=== PATIENT | female | born 1995 | race Caucasian/White ===

== ENCOUNTER 2021-05-05 07:27 | Observation (INO) | payer OTHER, SELFPAY ==
[2021-05-05] VITALS (15 sets, daily range): BP systolic 86–137; BP diastolic 47–79; PULSE 65–106; RESP 14–22; TEMP 36.7–37.5; O2SAT 94–99; BMI 33.9
--- NOTE | 2021-05-05 07:42 | ED_ITS ---
HPI - Abdominal Pain General: Chief Complaint: Abdominal Pain Stated Complaint: abd pain n/v Time Seen by Provider: 05/05/21 07:28 History of Present Illness: HPI narrative: 25-year-old female abdominal pain nausea and vomiting generalized abdominal pain initially is slightly more focal to the right lower quadrant at this point. She denies dysuria urgency or frequency. She has had irritable bowel symptoms in the past which has not required any kind of intervention or medication. She denies any vaginal bleeding or discharge she last ate earlier this morning. She denies any cough or shortness of breath no flulike symptoms. MD elicited complaint: abdominal pain Pertinent past history: other (Irritable bowel syndrome) Onset (ago): hour(s) Pain Consistency: constant Location: RLQ Severity: severe Quality: cramping and stabbing Radiation: none Migration to: RLQ Exacerbating factors: nothing Relieving factors: nothing Associated Symptoms: Denies anorexia, belching, bloating, change in bowel habits, change in stool character, chills, coffee ground emesis, constipation, GI cramping, diarrhea, dyspepsia, dysuria, excessive flatus, fever(s), heartburn, hematochezia, hematuria, hematemesis, fecal incontinence, loose stools, melena, nausea, poor appetite, syncope and vomiting Review of Systems Const: Denies: fever(s) or chills ENMT: Denies: throat pain, ear or mastoid pain, nasal discharge or nasal congestion Card: Denies: syncope Resp: Denies: dyspnea, productive cough or non-productive cough GI: Denies: nausea, vomiting, hematemesis, coffee ground emesis, heartburn, diarrhea, constipation, bloating, GI cramping, belching, excessive flatus, fecal incontinence, change in bowel habits, change in stool character, hematochezia or melena : Denies: dysuria or hematuria Skin/Breast: Denies: rash or pruritus Physical Exam Const: COMMON NORMALS: no acute distress GENERAL APPEARANCE: cooperative and comfortable ORIENTATION/CONSCIOUSNESS: Yes awake, Yes oriented to person, Yes oriented to place and Yes oriented to time HENMT: COMMON NORMALS: normocephalic, atraumatic and hearing grossly normal bilaterally HEAD & SCALP: normocephalic and atraumatic Neck/C-Spine: COMMON NORMALS: no JVD Lymph: LYMPHATIC: no lymphadenopathy noted and no lymphedema noted Resp: COMMON NORMALS: normal respiratory effort, No retractions, No use of accessory muscles and clear to auscultation bilaterally AUSCULTATION: clear to auscultation bilaterally Cardio: COMMON NORMALS: no JVD, regular rate, regular rhythm and No murmurs present (Cardio) RATE: regular rate RHYTHM: regular rhythm GI: PALPATION: Yes Tenderness to palpation present (GI) Details: RLQ and No Guarding due to palpation present (GI) Extremity: COMMON NORMALS: normal to inspection, capillary refill normal, no clubbing, cyanosis or edema, no calf tenderness and no pedal edema Neuro: SENSORIUM/ORIENTATION: Yes oriented to person, Yes oriented to place and Yes oriented to time Skin: COMMON NORMALS: no rashes or lesions noted GENERAL SKIN EXAM: no rashes or lesions noted Course Vital Signs: Vital signs: Vital Signs Temperature 99.4 F 05/05/21 07:43 Pulse Rate 101 H 05/05/21 07:43 Respiratory Rate 16 05/05/21 09:40 Blood Pressure 110/75 05/05/21 07:43 Pulse Oximetry 97 05/05/21 07:43 MDM - Abdominal Pain MDM Narrative: Medical decision making narrative: CT shows acute appendicitis discussed Dr. Green he will take patient to surgery. Lab Data: Labs: Lab Results 05/05/21 05/05/21 05/05/21 Range/Units 08:09 08:09 08:09 WBC 15.7 H (4.0-10.0) 10^3/ uL RBC 4.77 (4.1-5.3) 10^6/u L Hgb 13.0 (11.5-15.3) g/dL Hct 40.0 (37.0-47.0) % MCV 83.9 (81-99) fL MCH 27.3 L (28.0-34.0) pg MCHC 32.5 (30.0-36.0) g/dL RDW 14.8 (12.1-15.1) % Plt Count 253 (130-400) 10^3/c mm MPV 11.5 H (7.4-10.4) fL Neut % (Auto) 82.3 % Lymph % (Auto) 10.6 % [place] % (Auto) 6.2 % Eos % (Auto) 0.2 % Baso % (Auto) 0.3 % Neut # (Auto) 12.94 H (1.8-7.7) 10^3/u L Lymph # (Auto) 1.7 (0.8-4.8) 10^3/u L [place] # (Auto) 1.0 H (0.2-0.9) 10^3/u L Eos # (Auto) 0.0 (0.0-0.8) 10^3/u L Baso # (Auto) 0.0 (0.0-0.1) 10^3/u L Nucleated RBC % (a uto) 0 % Nucleated RBCs # 0.0 /100WBC Sodium 138 (136-145) mmol/L Potassium 3.8 (3.5-5.1) mmol/L Chloride 103 (98-107) mmol/L Carbon Dioxide 24 (22-29) mmol/L Anion Gap 14.8 (5-19) BUN 6 (6-20) mg/dL Creatinine 0.6 (0.5-0.9) mg/dL GFR Calculation 122.8 (90-130) mL/min Glucose 100 (65-115) mg/dL Calculated Osmolal ity 284 L (285-295) mOsm/k g Calcium 8.8 (8.5-10.5) mg/dL Total Bilirubin 0.6 (0.15-1.2) mg/dL AST 44 H (0-32) U/L ALT 86 H (0-33) U/L Alkaline Phosphata se 109 H (35-105) IU/L Total Protein 7.1 (6.6-8.7) g/dL Albumin 4.0 (3.5-5.2) g/dL Globulin 3.1 (1.3-4.6) g/dL Lipase 16 (13-60) U/L HCG, Qual Negative (Negative) Urine Color (Yellow) Urine Appearance (CLEAR) Urine pH (5-7) Ur Specific [place] y (1.005-1.030) Urine Protein (Negative) Urine Glucose (UA) (Normal) Urine Ketones (Negative) Urine Blood (Negative) Urine Nitrate (Negative) Urine Bilirubin (Negative) Urine Urobilinogen (Negative) mg/dL Ur Leukocyte Sary ase (Negative) Urine RBC (0-2) /hpf Urine WBC (0-5) /hpf Ur Squamous Epith Cells (0-5) /hpf Amorphous Sediment Urine Bacteria (NONE) /hpf 05/05/21 Range/Units 08:34 WBC (4.0-10.0) 10^3/ uL RBC (4.1-5.3) 10^6/u L Hgb (11.5-15.3) g/dL Hct (37.0-47.0) % MCV (81-99) fL MCH (28.0-34.0) pg MCHC (30.0-36.0) g/dL RDW (12.1-15.1) % Plt Count (130-400) 10^3/c mm MPV (7.4-10.4) fL Neut % (Auto) % Lymph % (Auto) % [place] % (Auto) % Eos % (Auto) % Baso % (Auto) % Neut # (Auto) (1.8-7.7) 10^3/u L Lymph # (Auto) (0.8-4.8) 10^3/u L [place] # (Auto) (0.2-0.9) 10^3/u L Eos # (Auto) (0.0-0.8) 10^3/u L Baso # (Auto) (0.0-0.1) 10^3/u L Nucleated RBC % (a uto) % Nucleated RBCs # /100WBC Sodium (136-145) mmol/L Potassium (3.5-5.1) mmol/L Chloride (98-107) mmol/L Carbon Dioxide (22-29) mmol/L Anion Gap (5-19) BUN (6-20) mg/dL Creatinine (0.5-0.9) mg/dL GFR Calculation (90-130) mL/min Glucose (65-115) mg/dL Calculated Osmolal ity (285-295) mOsm/k g Calcium (8.5-10.5) mg/dL Total Bilirubin (0.15-1.2) mg/dL AST (0-32) U/L ALT (0-33) U/L Alkaline Phosphata se (35-105) IU/L Total Protein (6.6-8.7) g/dL Albumin (3.5-5.2) g/dL Globulin (1.3-4.6) g/dL Lipase (13-60) U/L HCG, Qual (Negative) Urine Color Yellow (Yellow) Urine Appearance Sl hazy (CLEAR) Urine pH 5 (5-7) Ur Specific Gravit y 1.015 (1.005-1.030) Urine Protein Neg (Negative) Urine Glucose (UA) Norm (Normal) Urine Ketones 2+ H (Negative) Urine Blood Neg (Negative) Urine Nitrate Negative (Negative) Urine Bilirubin Neg (Negative) Urine Urobilinogen Norm (Negative) mg/dL Ur Leukocyte Sary ase Negative (Negative) Urine RBC None (0-2) /hpf Urine WBC Rare (0-5) /hpf Ur Squamous Epith Cells 25-40 H (0-5) /hpf Amorphous Sediment Not Reportable Urine Bacteria Trace (NONE) /hpf Discharge Plan Discharge Patient Disposition: Admitted As Inpatient Clinical Impression: Acute appendicitis Condition: Stable Referrals: NOT ON FILE,DOCTOR [Primary Care Provider] - Coding Level of Care Code ED [facility] [employer] for Joe Watson
[2021-05-05 08:24] LABS: Basophils % 0.3 %; Eosinophils % 0.2 %; Lymphocytes # 1.7 10^3/uL (0.8-4.8); Lymphocytes % 10.6 %; Mean Corpuscular HGB Conc 32.5 g/dL (30.0-36.0); Mean Corpuscular Hemoglobin 27.3 pg (28.0-34.0); Mean Corpuscular Volume 83.9 fL (81-99); Mean Platelet Volume 11.5 fL (7.4-10.4); Monocytes % 6.2 %; Neutrophils # 12.94 10^3/uL (1.8-7.7); Neutrophils % 82.3 %; Nucleated Red Blood Cells % 0 %; Platelet Count 253 10^3/cmm (130-400); Red Blood Count 4.77 10^6/uL (4.1-5.3); Red Cell Distribution Width 14.8 % (12.1-15.1); White Blood Count 15.7 10^3/uL (4.0-10.0)
[2021-05-05 08:40] LABS: HCG, Serum Qual Negative (Negative)
[2021-05-05 08:43] LABS: Alanine Aminotransferase 86 U/L (0-33); Alkaline Phosphatase 109 IU/L (35-105); Anion Gap 14.8 (5-19); Aspartate Amino Transferase 44 U/L (0-32); Blood Urea Nitrogen 6 mg/dL (6-20); Calcium 8.8 mg/dL (8.5-10.5); Carbon Dioxide 24 mmol/L (22-29); Chloride 103 mmol/L (98-107); Globulin 3.1 g/dL (1.3-4.6); Glomerular Filtration Rate 122.8 mL/min (90-130); Glucose 100 mg/dL (65-115); Lipase 16 U/L (13-60); Osmolality Calculated 284 mOsm/kg (285-295); Potassium 3.8 mmol/L (3.5-5.1); Sodium 138 mmol/L (136-145); Total Bilirubin 0.6 mg/dL (0.15-1.2); Total Protein 7.1 g/dL (6.6-8.7)
--- NOTE | 2021-05-05 08:50 | CT_ITS ---
WS: [id number] CT ABDOMEN PELVIS TECHNIQUE: Contrast-enhanced CT of the abdomen and pelvis with coronal and sagittal reformatted image s. CLINICAL INFORMATION: abd pain COMPARISON: None. DLP: 1735.[address] scans at [facility] use at least one of these dose optimization techniques: automat ed exposure control; mA and/or kV adjustment per patient size (includes targeted exams where dose is matched to clinical indication); or iterative reconstruction. FINDINGS: Prior hysterectomy. Dilated fluid-filled appendix right lower quadrant with peripheral enhancement me asuring 12 mm consistent with acute appendicitis. Inflammatory stranding and edema in the right lower quadrant. Reactive lymph nodes in the right lower quadrant. Trace free fluid in the cul-de-sac. Mild diffuse fatty infiltration liver. Normal portal vein and splenic vein. Normal spleen. Lung bases are well aerated. Adrenal glands are normal. No hydronephrosis in either kidney. Normal pancreatic p arenchymal enhancement. Small splenule. Normal caliber abdominal aorta. Normal sigmoid colon. Fat-containing umbilical hernia. Gallbladder is contracted. No hydronephrosis i n either kidney. Normal caliber abdominal aorta. CT/CT abdomen pelvis w con* [id number] IMPRESSION: 1. Dilated fluid-filled appendix in the right lower quadrant consistent with a cute appendicitis. Appendix measures 12 mm. 2. Associated inflammatory stranding and edema in the right lower quadrant wit h reactive lymph nodes. Notified Erasto Ceja DO at 05/05/2021 10:04 AM.
[2021-05-05 09:02] LABS: Add Urine Microscopic? YES; Bilirubin Urine Neg (Negative); Blood Urine Neg (Negative); Glucose Urine UA Norm (Normal); Ketones Urine 2+ (Negative); Leukocyte Esterase Urine Negative (Negative); Nitrate Urine Negative (Negative); Protein Urine Neg (Negative); Specific Gravity, Urine 1.015 (1.005-1.030); Urine Appearance SL Hazy (CLEAR); Urine Color Yellow (Yellow); Urobilinogen Urine Norm (Negative); pH Urine 5 (5-7)
[2021-05-05 09:03] LABS: Bacteria Urine TRACE /hpf; Squamous Epithelial Cell Urine 25-40 /hpf (0-5); WBC Urine RARE /hpf (0-5)
[2021-05-05] MEDS: iohexol 300 mg/mL 100 mL Btl IV (09:25)
[2021-05-05] MEDS: morphine 4 mg/mL SDV 1 mL IVP (09:40)
[2021-05-05] MEDS: ondansetron 2 mg/ML SDV 2 mL 4 MG IVP (09:40)
[2021-05-05] MEDS: LORazepam 2 mg/mL INJ 1 mL 1 MG IVP (10:20)
--- NOTE | 2021-05-05 12:15 | PM.HP ---
Providers/Chief Complaint Admitting Physician: General Surgery Mendez Green MD Primary Care Provider: DOCTOR NOT ON FILE Chief Complaint: abd pain n/v History of Present Illness Nidhi Dooley is a 25 year old female who developed diffuse abdominal pain yesterday morning. It persisted throughout the day into this morning and now seems to be a little bit worse in the right lower quadrant. The patient has been nauseated but has not vomited. She has had diarrhea since her pain started yesterday morning but no evidence of hematochezia. She is not certain about any fevers. She came to the emergency room and a CAT scan showed changes consistent with acute appendicitis. The patient states that this happened to her last month and she came to the emergency room and all that was done was an ultrasound. The pain ended up getting better by itself. Review of Systems General: Reports: 10 or more systems reviewed and unremarkable except in HPI and below GI: Reports: abdominal pain, nausea and diarrhea; Denies: vomiting Medications/Allergies Home Medications Medication Instructions Recorded Confirmed Last Taken Type Unable to Assess 05/05/21 05/05/21 Unknown History Allergies Allergy/AdvReac Type Severity Reaction Status Date / Time No Known Allergies Allergy Unverified 05/05/21 10:25 PFSH Acute PFSH: Medical History (Updated 05/05/21 @ 12:19 by Mendez Green MD) Anxiety and depression Surgical History (Updated 05/05/21 @ 12:21 by Mendez Green MD) History of hysterectomy [place] teeth extracted Social History (Updated 05/05/21 @ 12:22 by Mendez Green MD) Smoking and tobacco status: current every day smoker cigarettes Packs smoked per day: 0.75 Years cigarettes smoked: 5 Alcohol intake: current Alcohol use comment: Infrequent Vitals/I&O/Wt Last Vital Signs Temp 99.4 F 05/05/21 07:43 Pulse 101 H 05/05/21 07:43 Resp 16 05/05/21 09:40 BP 110/75 05/05/21 07:43 Pulse Ox 97 05/05/21 07:43 Weight last 48 hrs Weight 210 lb Physical Exam Narrative: EXAM NARRATIVE: The patient was encountered in her room in the emergency department. She asked like she does not feel well but is in no distress. The pupils are equal. No carotid bruits are heard. The lungs are clear anteriorly. The heart is regular. The abdomen is moderately obese but is soft. Bowel sounds are hypoactive. The patient has an equivocal Rovsing sign but has significant tenderness over McBurney's point in the right lower quadrant. No obvious masses are palpated. The extremities reveal no edema. Neurologically the patient appears to be grossly intact. Data : 05/05/21 08:09 05/05/21 08:09 CT Abd/Pel: Radiologist's impression: CT scan abdomen/pelvis 05/05/2021 IMPRESSION: 1. Dilated fluid-filled appendix in the right lower quadrant consistent with acute appendicitis. Appendix measures 12 mm. 2. Associated inflammatory stranding and edema in the right lower quadrant with reactive lymph nodes. A&P Assessment and plan (1) Acute appendicitis: I discussed appendicitis with the patient in detail. Both surgical and medical methods of management were discussed. Surgical risks of bleeding, infection, internal organ injury, etc. were all gone over. The patient seems to understand and would like to proceed with an appendectomy today. The patient had 2 small apple slices to eat at 6 AM this morning. She has otherwise been n.p.o. I am going to make arrangements for an appendectomy today. Status: Acute Attestations Medical Necessity Statement*: Based on my medical assessment, presenting symptoms and consideration of the scope of surgical therapy, I expect this patient will require treatment in the hospital for a period of time spanning less than 2 midnights, and is therefore being placed in observation status. Coding Level of Care Code Acute [facility] Shipper for [facility] Diagnoses Acute appendicitis K35.80
--- NOTE | 2021-05-05 13:00 | P.ANESASSM_ITS ---
Pre-Anesthetic Assessment Pre-Anesthetic Assessment: Height/Weight: Height 1.68 m Weight 95.254 kg Temp Pulse Resp BP Pulse Ox 99.4 F 101 H 16 110/75 97 05/05/21 07:43 05/05/21 07:43 05/05/21 09:40 05/05/21 07:43 05/05/21 07:43 Preop Diagnosis: appendicitis Proposed Procedure: Operation Date: 05/05/21 13:10 Proposed Procedures p Laparoscopic Appendectomy(Not Applicable) - Mendez Green MD Familial anesthetic complications: None Was Beta Wander taken within 24 hours: N/A Was Clonidine taken within 24 hours: N/A Last intake: Intake Last Liquid Date 05/04/21 Last Liquid Time 12:00 Last Solid Date 05/05/21 Last Solid Time 05:30 Social: Social History: Tobacco and No alcohol Exam: Pre-Anes Outpt Exam: alert, oriented x 3, clear to auscultation bilaterally and regular rate & rhythm Airway: Cervical ROM: WNL MP: 2 Dentition: Full Neuropsych: Neuropsych: Anxiety and Depression Anesthetic Plan: ASA status: 2 Anesthesia: General Risk of > 500 ml blood loss (7ml/kg in children): No PFSH Anesthesia PFSH: Medical History (Updated 05/05/21 @ 12:19 by Mendez Green MD) Anxiety and depression Surgical History (Updated 05/05/21 @ 12:21 by Mendez Green MD) History of hysterectomy [place] teeth extracted Social History (Updated 05/05/21 @ 12:22 by Mendez Green MD) Smoking and tobacco status: current every day smoker cigarettes Packs smoked per day: 0.75 Years cigarettes smoked: 5 Alcohol intake: current Alcohol use comment: Infrequent Data Anesthesia CBC & Chem 7: 05/05/21 08:09 05/05/21 08:09 Other Labs: Laboratory Results - last 48 hr 05/05/21 05/05/21 05/05/21 08:09 08:09 08:09 WBC 15.7 H RBC 4.77 Hgb 13.0 Hct 40.0 MCV 83.9 MCH 27.3 L MCHC 32.5 RDW 14.8 Plt Count 253 MPV 11.5 H Neut % (Auto) 82.3 Lymph % (Auto) 10.6 [place] % (Auto) 6.2 Eos % (Auto) 0.2 Baso % (Auto) 0.3 Neut # (Auto) 12.94 H Lymph # (Auto) 1.7 [place] # (Auto) 1.0 H Eos # (Auto) 0.0 Baso # (Auto) 0.0 Nucleated RBC % (auto) 0 Nucleated RBCs # 0.0 Sodium 138 Potassium 3.8 Chloride 103 Carbon Dioxide 24 Anion Gap 14.8 BUN 6 Creatinine 0.6 GFR Calculation 122.8 Glucose 100 Calculated Osmolality 284 L Calcium 8.8 Total Bilirubin 0.6 AST 44 H ALT 86 H Alkaline Phosphatase 109 H Total Protein 7.1 Albumin 4.0 Globulin 3.1 Lipase 16 HCG, Qual Negative Urine Color Urine Appearance Urine pH Ur Specific [place] Urine Protein Urine Glucose (UA) Urine Ketones Urine Blood Urine Nitrate Urine Bilirubin Urine Urobilinogen Ur Leukocyte Esterase Urine RBC Urine WBC Ur Squamous Epith Cells Amorphous Sediment Urine Bacteria 05/05/21 08:34 WBC RBC Hgb Hct MCV MCH MCHC RDW Plt Count MPV Neut % (Auto) Lymph % (Auto) [place] % (Auto) Eos % (Auto) Baso % (Auto) Neut # (Auto) Lymph # (Auto) [place] # (Auto) Eos # (Auto) Baso # (Auto) Nucleated RBC % (auto) Nucleated RBCs # Sodium Potassium Chloride Carbon Dioxide Anion Gap BUN Creatinine GFR Calculation Glucose Calculated Osmolality Calcium Total Bilirubin AST ALT Alkaline Phosphatase Total Protein Albumin Globulin Lipase HCG, Qual Urine Color Yellow Urine Appearance Sl hazy Urine pH 5 Ur Specific [place] 1.015 Urine Protein Neg Urine Glucose (UA) Norm Urine Ketones 2+ H Urine Blood Neg Urine Nitrate Negative Urine Bilirubin Neg Urine Urobilinogen Norm Ur Leukocyte Esterase Negative Urine RBC None Urine WBC Rare Ur Squamous Epith Cells 25-40 H Amorphous Sediment Not Reportable Urine Bacteria Trace Cardiac Studies: No Data to Display
[2021-05-05] MEDS: fentaNYL 50 mcg/mL INJ 2mL 100 MCG IVP (13:06)
[2021-05-05] MEDS: sodium chloride 0.9% 1,000 ML 30 ML IV (13:07)
[2021-05-05] MEDS: metroNIDAZOLE IV 500 MG/100 ML PREMIX 100 MG IV (15:18)
--- NOTE | 2021-05-05 16:04 | P.OP_ITS ---
Operative Report Date of procedure: May 05, 2021 Pre-op Diagnosis: Acute appendicitis. Post-op Diagnosis: Same with small retroperitoneal abscess. Procedure Done: Laparoscopic appendectomy. Specimens removed/disposition: Appendix. Surgeon: Mendez Green Anesthesia: General Estimated blood loss (mL): 10 Complications: None. Condition: stable Disposition: PACU Procedure: The patient was brought to the Operating Room and was placed in a supine position on the operating room table. General endotracheal anesthesia was induced. The abdomen was prepped and draped in a sterile fashion. A small vertical incision was carried out in the inferior aspect of the umbilicus. Blunt dissection was carried out down to the fascia, where a small umbilical hernia containing some fat was found. The fat was excised and the defect was simply elongated inferiorly. The underlying peritoneum was opened bluntly and the Dada port was placed directly into the peritoneal cavity and was held in place with the inflatable balloon. The peritoneal cavity was insufflated with carbon dioxide. The laparoscope was used to inspect the peritoneal cavity. No gross abnor malities were initially noted. Two 5-millimeter ports were placed in the left lower quadrant under direct vision through previous laparoscopic scars. The patient was tilted in a Trendelenburg position and slightly to the left side. A laparoscopic [place] was used to elevate the cecum and the appendix was identified. The appendix was involved in an early phlegmon and was somewhat intimately associated with the posterior peritoneum and the upper right pelvis. The appendix was freed using blunt dissection and was then elevated. In the process, the mesoappendix tore slightly and a small but sterile looking (more exudative) abscess was found in the retroperitoneum behind the base of the mesoappendix. This was suctioned out. The remainder of the mesoappendix was divided using cautery to maintain hemostasis at the base of the appendix. The base of the appendix appeared relatively healthy and was divided using an endoscopic stapler. The appendix was removed from the peritoneal cavity after being placed in a laparoscopic bag. The right lower quadrant and pelvis were irrigated. The staple line on the cecum was identified and appeared to be in good condition. The Dada port was removed from the umbilical site. A [id number] suture of 0 Vicryl was placed at the fascial level, closing the fascial defect so that it was airtight. A final round of irrigation was carried out in the right lower quadrant and the pelvis. No ongoing problems were seen. The remaining ports were removed from the abdominal wall as the pneumoperitoneum was evacuated. All skin incisions were closed using inverted interrupted sutures of 4-0 Vicryl. Benzoin and Steri-Strips were placed over the incisions and Band- Aids followed. The patient was taken to the Recovery Room in stable condition postoperatively.
--- NOTE | 2021-05-05 16:53 | SUR.PHASEI ---
1620 PATIENT TRANSPORTED TO MED SURG. NO DISTRESS. DRESSINGS TO ABDOMEN, CDI. PATIENT AMBULATORY FROM [facility] TO BED.
[2021-05-05] MEDS: HYDROcodone-acetaminophen 5-325 mg Tablet PO (18:06)
[2021-05-05] MEDS: heparin 5,000 unit/mL INJ 1 mL 5000 UNIT SUBCUT (18:08)
[2021-05-05] MEDS: piperacillin-tazobactam 3.375 GM in sodium chloride 0.9% (plus) 50 ML IV (18:12)
[2021-05-05] MEDS: famotidine 20 mg/2 mL INJ IVP (18:19)
[2021-05-05] MEDS: D5-NS 0.45% + KCL 20 mEq 20 MEQ/1,000 ML BAG 100 MEQ IV (18:44)
--- NOTE | 2021-05-05 19:34 | ANE.PACU2 ---
Inpatient post-anesthesia follow up: Airway intact: Yes Vital signs: Temperature 98.1 F Pulse Rate [Left R adial] 101 Pulse Rate 93 Respiratory Rate 17 Blood Pressure [Le ft Arm] 110/75 Blood Pressure 106/65 Pulse Oximetry 95 Oxygen Delivery Me thod Room Air Oxygen Flow Rate Fraction of Inspir ed Oxygen Hydration adequate: Yes Nausea and vomiting: No Pain level: 2 Mental status: Baseline
[2021-05-05] MEDS: ketorolac 30 mg/mL INJ IVP (21:22)
[2021-05-06] MEDS: piperacillin-tazobactam 3.375 GM in sodium chloride 0.9% (plus) 50 ML IV (02:07)
[2021-05-06] MEDS: D5-NS 0.45% + KCL 20 mEq 20 MEQ/1,000 ML BAG 100 MEQ IV (02:10)
[2021-05-06] MEDS: HYDROcodone-acetaminophen 5-325 mg Tablet PO (02:14)
[2021-05-06 03:30] VITALS: BP 99/65; PULSE 73; RESP 16; TEMP 36.4; O2SAT 96
[2021-05-06] MEDS: heparin 5,000 unit/mL INJ 1 mL 5000 UNIT SUBCUT (05:02)
[2021-05-06] MEDS: famotidine 20 mg/2 mL INJ IVP (05:02)
--- NOTE | 2021-05-06 06:07 | PC.NURSE ---
shift summary patient has had a fairly good night. did have some pain that was controlled with medication and repositioning. bowel sounds are hypoactive and patient still has not passed gas. patient has been up walking in the [place] during this shift.
--- NOTE | 2021-05-06 07:36 | PM.DCS ---
Discharge Providers Date of Admission: 05/05/21 16:34 Date of Discharge: May 06, 2021 Attending Provider at Admission: Mendez Green MD Attending Provider at Discharge: Mendez Green MD Primary Care Provider: DOCTOR NOT ON FILE Diagnoses at Discharge Discharge Diagnosis (1) Acute appendicitis: Status: Acute Reason for Visit Reason for Visit: abd pain n/v Hospital Course Hospital Course This is a 25-year-old white female who presented to the emergency department with a 2-day history of abdominal pain. Work-up including a CAT scan revealed evidence of acute appendicitis. The patient was taken to the operating room and a laparoscopic appendectomy was performed the same day. The patient had a small, possible early abscess in the mesoappendix just outside of the appendix itself, but no evidence of gross perforation was seen with any certainty. The patient was kept on broad-spectrum antibiotics overnight and by the following morning she said she was already feeling much better. She was hungry and seemed to be primarily concerned with how big the breakfast portions were and that she would have enough to eat. She was anxious to go home. She was instructed with respect to wound care, activity limitations, diet, etc. Arrangements were made for her to be sent home on oral antibiotics and some pain medication. Arrangements were also made for the patient to follow-up in my office as an outpatient. Physical Exam Narrative: EXAM NARRATIVE: Postop day #1: Bowel sounds are present. All the laparoscopic incisions look good. The patient is afebrile and vital signs appear stable. The patient has the expected amount of tenderness. Discharge Data Data Completed and Pending: Completed Studies During Hospitalization Category Date Time Status CT abdomen pelvis w con* [id number] Stat Cat Scan 05/05/21 08:50 Completed Pending at discharge Category Date Time Status Pathology: Surgic al [PTH] Routine Pth 05/05/21 15:58 Ordered Labs from last 24 hours 05/05/21 05/05/21 05/05/21 08:34 08:09 08:09 WBC RBC Hgb Hct MCV MCH MCHC RDW Plt Count MPV Neut % (Auto) Lymph % (Auto) [place] % (Auto) Eos % (Auto) Baso % (Auto) Neut # (Auto) Lymph # (Auto) [place] # (Auto) Eos # (Auto) Baso # (Auto) Nucleated RBC % (a uto) Nucleated RBCs # Sodium 138 Potassium 3.8 Chloride 103 Carbon Dioxide 24 Anion Gap 14.8 BUN 6 Creatinine 0.6 GFR Calculation 122.8 Glucose 100 Calculated Osmolal ity 284 L Calcium 8.8 Total Bilirubin 0.6 AST 44 H ALT 86 H Alkaline Phosphata se 109 H Total Protein 7.1 Albumin 4.0 Globulin 3.1 Lipase 16 HCG, Qual Negative Urine Color Yellow Urine Appearance Sl hazy Urine pH 5 Ur Specific Gravit y 1.015 Urine Protein Neg Urine Glucose (UA) Norm Urine Ketones 2+ H Urine Blood Neg Urine Nitrate Negative Urine Bilirubin Neg Urine Urobilinogen Norm Ur Leukocyte Sary ase Negative Urine RBC None Urine WBC Rare Ur Squamous Epith Cells 25-40 H Amorphous Sediment Not Reportable Urine Bacteria Trace 05/05/21 08:09 WBC 15.7 H RBC 4.77 Hgb 13.0 Hct 40.0 MCV 83.9 MCH 27.3 L MCHC 32.5 RDW 14.8 Plt Count 253 MPV 11.5 H Neut % (Auto) 82.3 Lymph % (Auto) 10.6 [place] % (Auto) 6.2 Eos % (Auto) 0.2 Baso % (Auto) 0.3 Neut # (Auto) 12.94 H Lymph # (Auto) 1.7 [place] # (Auto) 1.0 H Eos # (Auto) 0.0 Baso # (Auto) 0.0 Nucleated RBC % (a uto) 0 Nucleated RBCs # 0.0 Sodium Potassium Chloride Carbon Dioxide Anion Gap BUN Creatinine GFR Calculation Glucose Calculated Osmolal ity Calcium Total Bilirubin AST ALT Alkaline Phosphata se Total Protein Albumin Globulin Lipase HCG, Qual Urine Color Urine Appearance Urine pH Ur Specific Gravit y Urine Protein Urine Glucose (UA) Urine Ketones Urine Blood Urine Nitrate Urine Bilirubin Urine Urobilinogen Ur Leukocyte Sary ase Urine RBC Urine WBC Ur Squamous Epith Cells Amorphous Sediment Urine Bacteria Vitals: Last Vital Signs Temp 97.5 F L 05/06/21 03:30 Pulse 73 05/06/21 03:30 Resp 16 05/06/21 03:30 BP 99/65 05/06/21 03:30 Pulse Ox 96 05/06/21 03:30 Discharge Plan Discharge Patient Disposition: Home Condition: Stable Prescriptions: New hydrocodone-acetaminophen 5-325 mg tablet 1 - 2 tab PO Q5H PRN (Reason: pain) Qty: 30 RF: 0 Augmentin 875-125 mg tablet 1 tab PO BID Qty: 15 RF: 0 Discharge Orders: Discharge Order (Routine); Ordered 05/06/21 Ordered By: Mendez Green Referrals: Mendez Green MD [Physician] - 2 weeks (Nursing: Please call Dr. Green's office ([phone]) and make an appointment for the patient to be seen in 10-14 days.) NOT ON FILE,DOCTOR [Primary Care Provider] - Discharge Diet: Advance as tolerated Discharge Activity: Limit activity as instructed Patient Instructions: Opioid Safety Activity Restrictions/Additional Instructions: 1. Discharge to home today. 2. Appointment to see Dr. Green in 10-14 days as above. 3. Bandages / bandaid off later today or tomorrow, leave Steri-Strip(s) on as discussed, may shower. 4. [place] 5/325 1-2 tablets by mouth every 5 hours as needed for pain. #30, no refills. 5. Augmentin 875/125 1 tablet p.o. twice daily until gone. #15, no refills. No lifting over 20 pounds, no repetitive bending or twisting, no strenuous pushing / pulling or other heavy activity. Ambulate regularly. May go up and down steps if needed. Discharge Attestations Time Spent in Discharge Care*: less than 30 min Quality Metrics Clinical Quality Measures During this hospital stay, did patient experience: None Coding Level of Care Code Acute [facility] note Diagnoses Acute appendicitis K35.80
[2021-05-06 07:47] VITALS: BP 111/73; PULSE 57; RESP 18; TEMP 36.6; O2SAT 96
[2021-05-06] MEDS: ketorolac 30 mg/mL INJ IVP (09:21)
--- NOTE | 2021-05-06 10:24 | PC.CHAP ---
Pastoral Care Encounter/Spiritual Assessment Type of Contact [] Declined juice standardizer visit [] Patient/Family/Request visit [] Outpatient visit [] Follow-up visit [] Physician referral [] Code/Alert x] Routine visit [] Staff referral [] Actively dying [] Patient sleeping [] Family support [] [] Out of room [] Palliative care [] [] Receiving care in room [] Pre-surgical visit [] Trauma [] Long length of stay [] ICU visit [] Other: Relational/Emotional Strength [x] Patient feels connected with others/family/visitors/staff [] Distress [] Loneliness/isolation [] Abandonment Spirituality of Patient x[x] Person of Wendy [x] Attends Restoration of their Wendy [x] Believes in Prayer [] Reads Bible or Denominational materials [] There are Spiritual issues to be addressed Director Clinical Applications Interventions [x] Prayer [x] Active listening [x] Non-anxious presence [] Spiritual/emotional support [] Crisis/trauma care [] Spiritual counseling [] Bereavement support [] Provided bereavement packet [] Provided Bible/devotional materials [] Provided toy/stuffed animal, coloring book to patient or family member [] Provided Communion [] Anointing/[place] [] Salvation [x] Completed spiritual assessment [] Other: Impact on Illness or Injury [] Angry [] Fearful [] Anxious [] Often cries [] Exhaustion [] Unable to work [] Unable to attend hoahaoism [] Unable to walk/stand [] Unable to read [] Unable to drive [] Unable to eat/drink [] Unable to sleep [] Unable to be with family [] Patient intubated [] Other: Summary patient feeling much better Time spent with patient 15 min
[2021-05-06 11:13] VITALS: BP 111/73; PULSE 57; RESP 18; TEMP 36.6; O2SAT 96
--- NOTE | 2021-05-07 16:09 | PC.RESP ---
Smoking Cessation information sent to patient.
== END 2021-05-06 10:00 | disposition home or self-care (01) ==
LOC: ER 10:22 → OPS 10:40 → MEDSURG 16:35
PROVIDERS: Physician Assistant; Admitting Provider Surgery; Emergency Provider Family Medicine; Visit Provider Surgery
PROC: 0DTJ4ZZ Resection of Appendix, Percutaneous Endoscopic Approach (ICD-10-PCS; CPT 44970; principal; 2021-05-05 13:00)
DX: K35.80 Unspecified acute appendicitis (principal); F17.210 Nicotine dependence, cigarettes, uncomplicated
CPT/HCPCS: 44970; 74177; 80053; 81001; 83690; 84703; 85025; 88304; 96361; 96365; 96367; 96372; 96374; 96375; 99285; G0378; J0690; J1100; J1170; J1644; J1885; J2060; J2270; J2405; J2543; J2704; J2710; J3010; J3490; J7030; Q9967; S0030